=== PATIENT | female | born 1990 | race American Indian/Alaskan Native ===

== ENCOUNTER 2016-11-10 16:42 | Emergency (ER) | payer MEDICAID ==
[2016-11-10 17:39] LABS: Basophils % (Auto) 0.6 % (0.0-1.8); Eosinophils % (Auto) 5.6 % (0.0-4.3); Hematocrit 38.5 % (30.3-42.9); Hemoglobin 12.8 gm/dl (10.1-14.3); Mean Corpuscular HGB Conc 33 % (30-34); Mean Corpuscular Hemoglobin 31 pg (28-32); Mean Corpuscular Volume 94 fl (79-97); Platelet Count 248 K/mm3 (140-440); Red Cell Distribution Width 13.2 % (13.2-15.2); White Blood Count 5.7 K/mm3 (4.5-11.0)
[2016-11-10 17:46] LABS: Anion Gap 17 mmol/L; Blood Urea Nitrogen 9 mg/dL (7-17); Calcium 9.1 mg/dL (8.4-10.2); Carbon Dioxide 22 mmol/L (22-30); Chloride 101.4 mmol/L (98-107); Glucose 88 mg/dL (65-100); Lipase 26 units/L (13-60); Potassium 3.8 mmol/L (3.6-5.0); Sodium 137 mmol/L (137-145)
--- NOTE | 2016-11-10 20:05 | Ultrasound Report ---
FINAL REPORT EXAM: US OB \T\lt; = 14 WEEKS FETUS HISTORY: 8 weeks , Vaginal Bleeding TECHNIQUE: Ultrasound 1st trimester obstetrical transabdominal PRIORS: None. FINDINGS: Gestational sac is identified within the uterus mean sac diameter 1.25 centimeters corresponding to estimated gestational age by sac size of 6 weeks 1 day. No pole or yolk sac identified. The right ovary is 2.8 x 1.3 x 1.0 centimeters The left ovary is 3.1 x 1.4 x 1.3 centimeters. No abnormal mass or cyst identified. No free fluid is identified in the cul-de-sac IMPRESSION: Intrauterine gestational sac. Six weeks by sac size. pole and yolk sac not yet identified. Continued followup recommended
--- NOTE | 2016-11-10 20:20 | Ultrasound Report ---
FINAL REPORT EXAM: US OB TRANSVAGINAL HISTORY: vag bleed TECHNIQUE: Ultrasound obstetrical transvaginal PRIORS: Correlated with today's transabdominal ultrasound FINDINGS: Again identified is a gestational sac within the uterus 1.3 centimeters corresponding to estimated gestational age of 6 weeks 1 day. Few small internal echoes are noted. No definitive pole or yolk sac is identified. No free fluid seen The ovaries are normal in size and echogenicity. Right ovary is 2.8 x 1.3 x 1.0 centimeters. Left ovary is 3.1 x 1.4 x 1.3 centimeters. IMPRESSION: Intrauterine gestational sac. No pole or yolk sac yet identified. Likely reflecting very early gestation. Continued followup is recommended.
--- NOTE | 2016-11-10 21:05 | Emergency Department Report ---
HPI - General Chief Complaint: Abdominal Pain Time Seen by Provider: 11/10/16 20:43 - HPI HPI: This is a 26-year-old Afro[place] female who presents to the emergency department with some mild vaginal bleeding and pelvic cramping that began this morning and the patient is . Her last nasal cycle was at the end of August and since that time the patient is taken to recent home tests that were positive. She has an OB appointment on the with a Dr. Silverman but otherwise has not yet seen an FISCAL ECONOMIST and is not on vitamins. With this the patient would be with one previous miscarriage and one . She is not taken anything for symptoms prior to presentation. She otherwise denies any past medical history. No recent travel or sick contacts at home. ED Past Medical Hx - Past Medical History Previous Medical History?: No - Surgical History Past Surgical History?: No - Social History Smoking Status: Never Smoker Substance Use Type: None - Medications Home Medications: Home Medications Medication Instructions Recorded Confirmed Last Taken Type Nitrofurantoin [place]/M-Cryst 100 mg PO ONCE #14 capsule 11/10/16 Unknown Rx [Macrobid CAP] Vit No.130/Iron/FA 1 each PO QDAY #30 tablet 11/10/16 Unknown Rx [ Tablet] ED Review of Systems ROS: Stated complaint: 8 WKS PREGN/ABD PAIN VAG BLEEDING Other details as noted in HPI Comment: All other systems reviewed and negative Constitutional: denies: chills, fever Eyes: denies: eye pain, eye discharge, vision change ENT: denies: ear pain, throat pain Respiratory: denies: cough, shortness of breath, wheezing Cardiovascular: denies: chest pain, palpitations Gastrointestinal: other (pelvic cramping). denies: nausea, vomiting Genitourinary: other (vaginal bleeding). denies: dysuria, discharge Musculoskeletal: denies: back pain, joint swelling, arthralgia Skin: denies: rash, lesions Neurological: denies: headache, weakness, paresthesias Physical Exam - Physical Exam Vital Signs: Vital Signs 11/10/16 16:56 Temperature 98.1 F Pulse Rate 82 Respiratory 16 Rate Blood Pressure 153/95 O2 Sat by Pulse 100 Oximetry Physical Exam: GENERAL: The patient is well-developed well-nourished. HEENT: Normocephalic. Atraumatic. Extraocular motions are intact. Patient has moist mucous membranes. Pupils equal reactive to light bilaterally. NECK: Supple. Trachea is midline. CHEST/LUNGS: Clear to auscultation. There is no respiratory distress noted. HEART/CARDIOVASCULAR: Regular. There is no tachycardia. There is no gallop rub or murmur. ABDOMEN: Abdomen is soft, nontender. No guarding or rebound tenderness. Patient has normal bowel sounds. There is no abdominal distention. SKIN: Skin is warm and dry. NEURO: The patient is awake, alert, and oriented. The patient is cooperative. The patient has no focal neurologic deficits. The patient has normal speech. MUSCULOSKELETAL: There is no tenderness or deformity. There is no limitation range of motion. There is no evidence of acute injury. ED Course Vital Signs 11/10/16 16:56 Temperature 98.1 F Pulse Rate 82 Respiratory 16 Rate Blood Pressure 153/95 O2 Sat by Pulse 100 Oximetry ED Medical Decision Making - Lab Data Result diagrams: 11/10/16 17:10 11/10/16 17:10 - Radiology Data Radiology results: report reviewed Transvaginal/ ultrasound shows a intrauterine gestational sac that would be six-week by sac size. No pole or yolk sac is identified. - Medical Decision Making 26 year female presents with some mild vaginal bleeding and lower abdominal/ pelvic cramping. Patient is and found out from home test and confirmed today with a beta hCG of 9800. Ultrasound shows a gestational sac that would be 6 weeks in size but there is no current pole or yolk sac. This is a threatened miscarriage that could still be viable versus impending miscarriage. The patient will need a follow-up in 3-4 days for a repeat hormone level and possibly a repeat ultrasound. If the normal level is increasing and the ultrasound shows some development of a yolk sac and this is a viable and just early. If the level is decreasing, and the patient is most likely having a miscarriage. Until that time the patient will be treated with vitamins and precautions. She has a very mild UTI and will be treated with Macrobid. - Differential Diagnosis , threatened miscarriage, spontaneous miscarriage, fibroids, UTI Critical Care Time: No Critical care attestation.: If time is entered above; I have spent that time in minutes in the direct care of this critically ill patient, excluding procedure time. ED Disposition Clinical Impression: Threatened miscarriage UTI (urinary tract infection) Qualifiers: Urinary tract infection type: acute cystitis Hematuria presence: without hematuria Qualified Code(s): N30.00 - Acute cystitis without hematuria Qualifiers: Weeks of gestation: less than 8 weeks Qualified Code(s): Z3A.01 - Less than 8 weeks gestation of Disposition: DISCHARGED TO HOME OR SELFCARE Is pt being admited?: No Condition: Stable Instructions: Threatened Miscarriage (ED), (ED), Urinary Tract Infection in Women (ED) Additional Instructions: Please follow-up with an FISCAL ECONOMIST or back in the emergency department in 3-4 days for a repeat hormone level and possibly ultrasound. If the hormone level is increasing from the 9800 it is today, and if the follow-up ultrasound shows development, then this may still be viable. If the hormone level is decreasing then most likely you are having a miscarriage. You can take Tylenol every 4 hours, using weight-based dosing, as needed for discomfort. I have started you on vitamins. Otherwise do not take any medications that are not prescribed by a physician. Return to the emergency department with any worsening of your symptoms or any acute distress. Prescriptions: Nitrofurantoin [place]/M-Cryst [Macrobid CAP] 100 mg PO ONCE #14 capsule Vit No.130/Iron/FA [ Tablet] 1 each PO QDAY #30 tablet Referrals: PRIMARY CAREMD [Primary Care Provider] - [facility] [Provider Group] - 3-5 Days [facility] [Provider Group] - 3-5 Days Time of Disposition: 22:42
[2016-11-10 22:27] LABS: Bilirubin,Urine NEG (Negative); Blood,Urine MOD (Negative); Ketones,Urine NEG (Negative); Leukocyte Esterase,Urine SM (Negative); Mucus,Urine FEW /HPF; Nitrite,Urine NEG (Negative); Protein,Urine <15 mg/dL mg/dL (Negative); Urobilinogen,Urine < 2.0 mg/dL (<2.0)
[2016-11-10] MEDS ORDERED: MACROBID PO ONE (22:39)
[2016-11-10 23:14] VITALS: BP 139/72
== END 2016-11-10 23:13 | disposition home or self-care (01) ==
LOC: ED 16:42
DX: O20.0 Threatened abortion (principal); O23.31 Infections of other parts of urinary tract in pregnancy, first trimester; Z3A.01 Less than 8 weeks gestation of pregnancy
CPT/HCPCS: 36415; 76801; 76817; 80048; 81001; 83690; 84144; 84702; 84703; 85025; 86850; 86900; 86901

== ENCOUNTER 2016-11-13 15:22 | Emergency (ER) | payer MEDICAID ==
--- NOTE | 2016-11-13 16:24 | Emergency Department Report ---
Entered by DARRYL MULLINS, acting as scribe for JOEL ORNELAS NP. Chief Complaint: Vaginal Bleeding Stated Complaint: POSS MISCARRIAGE Time Seen by Provider: 11/13/16 16:16 - HPI History of Present Illness: 26 y/o non-toxic, non ill-appearing female in no acute distress presents to ED c/o severe lower abdominal and pelvic pain described as "sharp, like menstrual cramps x 10" with heavy vaginal bleeding since 4 days ago. She states her bleeding and pain have progressively worsened and states she her bleeding is soaking through her clothes. Pt reports she was seen here 4 days ago and was dx'ed with UTI and possible threatened miscarriage, but denies dx of miscarriage. Pt states she is 6 weeks . - ROS Review of Systems: + lower abdominal pain, pelvic pain + vaginal bleeding, heavy - Exam Vital Signs: Vital Signs 11/13/16 16:09 Temperature 98.1 F Pulse Rate 116 H Respiratory 20 Rate Blood Pressure 130/92 O2 Sat by Pulse 100 Oximetry Physical Exam: Abdomen: Lower abdominal, pelvic pain. No point tenderness. Non-distended. MSE screening note: Focused history and physical exam performed. Due to findings the following was ordered: UA, CMP, hcg quantitative serum, CBC ED Disposition for MSE Condition: Stable This documentation as recorded by the scribe,DARRYL MULLINS,accurately reflects the service I personally performed and the decisions made by CECI crews MARTIN, DAVID.
[2016-11-13 17:05] LABS: Basophils % (Auto) 0.6 % (0.0-1.8); Eosinophils % (Auto) 2.9 % (0.0-4.3); Hematocrit 37.9 % (30.3-42.9); Hemoglobin 12.9 gm/dl (10.1-14.3); Mean Corpuscular HGB Conc 34 % (30-34); Mean Corpuscular Hemoglobin 32 pg (28-32); Mean Corpuscular Volume 94 fl (79-97); Platelet Count 270 K/mm3 (140-440); Red Blood Count 4.05 M/mm3 (3.65-5.03); Red Cell Distribution Width 13.2 % (13.2-15.2); White Blood Count 9.4 K/mm3 (4.5-11.0)
[2016-11-13 17:41] LABS: Alanine Aminotransferase 9 units/L (7-56); Albumin 4.4 g/dL (3.9-5); Albumin/Globulin Ratio 1.4 %; Alkaline Phosphatase 42 units/L (35-129); Anion Gap 21 mmol/L; BUN/Creatinine Ratio 15.71; Blood Urea Nitrogen 11 mg/dL (7-17); Calcium 9.3 mg/dL (8.4-10.2); Carbon Dioxide 18 mmol/L (22-30); Chloride 101.6 mmol/L (98-107); Glucose 97 mg/dL (65-100); Potassium 4.1 mmol/L (3.6-5.0); Sodium 136 mmol/L (137-145); Total Protein 7.5 g/dL (6.3-8.2)
[2016-11-13 21:37] LABS: Bilirubin,Urine NEG (Negative); Blood,Urine MOD (Negative); Ketones,Urine NEG (Negative); Leukocyte Esterase,Urine NEG (Negative); Nitrite,Urine NEG (Negative); Urobilinogen,Urine < 2.0 mg/dL (<2.0)
[2016-11-13 21:43] LABS: RBC,Urine > 182.0 /HPF (0.0-6.0); WBC,Urine < 1.0 /HPF (0.0-6.0)
--- NOTE | 2016-11-13 21:53 | Emergency Department Report ---
ED General Adult HPI - General Chief complaint: Vaginal Bleeding Stated complaint: POSS MISCARRIAGE Time Seen by Provider: 11/13/16 21:43 Source: patient Mode of arrival: Ambulatory Limitations: No Limitations - History of Present Illness Initial comments: This is a pleasant female who is AB2 at 6weeks who reports increased bleeding today. She was actually here 3 days ago for small amount of vaginal bleeding. She did have ultrasound performed demonstrating a gestational sac measuring out in 6 weeks. Hormone levels were noted to be in the 90,000 range at that time as well. She was given a diagnosis of threatened miscarriage and OB follow-up. She returns today stating that she over the course that he has had significant increase in amount of bleeding that she's had. She's also had some clots that have been passing as well as some tissue products. She is concerned that she may have miscarried. She has a follow-up appointment with OB on Sunday. She does report some pelvic pain that is consistent with bad cramps. She states that she's been taking able to tolerate by mouth. She denies lightheadedness or dizziness associated with this. She states that actually over the last 2 hours her bleeding is significantly slowed down. Severity scale (0 -10): 8 Improves with: none Worsens with: none - Related Data Previous Rx's Medication Instructions Recorded Last Taken Type Nitrofurantoin [place]/M-Cryst 100 mg PO ONCE #14 capsule 11/10/16 Unknown Rx [Macrobid CAP] Vit No.130/Iron/FA 1 each PO QDAY #30 tablet 11/10/16 Unknown Rx [ Tablet] Allergies Allergy/AdvReac Type Severity Reaction Status Date / Time No Known Allergies Allergy Unverified 11/10/16 16:56 ED Review of Systems ROS: Stated complaint: POSS MISCARRIAGE Other details as noted in HPI Comment: All other systems reviewed and negative Constitutional: denies: chills, fever Eyes: denies: eye pain, eye discharge, vision change ENT: denies: ear pain, throat pain Respiratory: denies: cough, shortness of breath, wheezing Cardiovascular: denies: chest pain, palpitations Endocrine: no symptoms reported Gastrointestinal: abdominal pain. denies: nausea, diarrhea Genitourinary: abnormal menses. denies: urgency, dysuria, discharge Musculoskeletal: denies: back pain, joint swelling, arthralgia Skin: denies: rash, lesions Neurological: denies: headache, weakness, paresthesias Psychiatric: denies: anxiety, depression Hematological/Lymphatic: denies: easy bleeding, easy bruising ED Past Medical Hx - Past Medical History Previous Medical History?: Yes Additional medical history: Threatening miscarriage - Surgical History Past Surgical History?: No - Social History Smoking Status: Never Smoker Substance Use Type: Alcohol - Medications Home Medications: Home Medications Medication Instructions Recorded Confirmed Last Taken Type Nitrofurantoin [place]/M-Cryst 100 mg PO ONCE #14 capsule 11/10/16 11/13/16 Unknown Rx [Macrobid CAP] Vit No.130/Iron/FA 1 each PO QDAY #30 tablet 11/10/16 11/13/16 Unknown Rx [ Tablet] ED Physical Exam - General Limitations: No Limitations General appearance: alert, in no apparent distress - Head Head exam: Present: atraumatic, normocephalic - Eye Eye exam: Present: normal appearance, EOMI. Absent: scleral icterus - ENT ENT exam: Present: normal exam, normal orophraynx, mucous membranes moist - Neck Neck exam: Present: normal inspection, full ROM. Absent: meningismus, lymphadenopathy - Respiratory Respiratory exam: Present: normal lung sounds bilaterally. Absent: respiratory distress, wheezes, rales - Cardiovascular Cardiovascular Exam: Present: regular rate, normal rhythm. Absent: systolic murmur, diastolic murmur, rubs, gallop - GI/Abdominal GI/Abdominal exam: Present: soft, tenderness, normal bowel sounds. Absent: guarding, rebound, organomegaly (mild suprapubic region.) - Extremities Exam Extremities exam: Present: normal inspection, full ROM. Absent: tenderness - Back Exam Back exam: Present: normal inspection, full ROM. Absent: CVA tenderness (R), CVA tenderness (L) - Neurological Exam Neurological exam: Present: alert, oriented X3 - Psychiatric Psychiatric exam: Present: normal affect, normal mood - Skin Skin exam: Present: warm, dry, intact, normal color. Absent: rash ED Course Vital Signs 11/13/16 11/13/16 16:09 20:59 Temperature 98.1 F 97.9 F Pulse Rate 116 H 92 H Respiratory 20 18 Rate Blood Pressure 130/92 143/93 O2 Sat by Pulse 100 99 Oximetry - Reevaluation(s) Reevaluation #1: 11/13/16 22:07 Patient is stable and well appearing here. She was slightly tachycardic in triage. Upon recheck her blood pressure was still appropriate with a heart rate of 94. She is comfortable speaking with her significant other. Unfortunately I didn't have to share with her bad news regarding her hormone levels significant only dropping compared to a value from 3 days ago. By her history is suspect she is completed miscarriage. She does have follow-up appointment on Sunday. I did encourage her to keep this appointment for repeat hormone checked to assure that her hCG continues to drop towards 0. She did have ultrasound again performed just 3 days ago demonstrating an IUP. I do not have suspicion for ectopic . Her examination is not consistent with this type of presentation either. Again hemodynamically she is otherwise appropriate and stable. Her Rh status is O+. This is again her second miscarriage she did have earlier elective performed on her first . I did indicate encouraged her to discuss with her OB other tests that could be performed as well to determine whether there are any complications with her caring a more successfully. Questions been answered otherwise stable and safe for home. ED Medical Decision Making - Lab Data Result diagrams: 11/13/16 16:32 11/13/16 16:32 Critical care attestation.: If time is entered above; I have spent that time in minutes in the direct care of this critically ill patient, excluding procedure time. ED Disposition Clinical Impression: Complete miscarriage Disposition: DISCHARGED TO HOME OR SELFCARE Is pt being admited?: No Does the pt Need Aspirin: No Condition: Stable Instructions: Spontaneous Miscarriage (ED) Additional Instructions: Your HCG levels on 11/10 were 9823. HCG levels on 11/13 are 6804. Your blood type is O positive. Your hemoglobin level today is 12.9 which is the same from 3 days ago. Follow up with your OB on Sunday as planned.Take Ibuprofen as needed for cramps. Referrals: TRISTEN HANNA MD [Primary Care Provider] - 3-5 Days Time of Disposition: 21:54
[2016-11-13 22:34] VITALS: BP 132/89
== END 2016-11-13 22:34 | disposition home or self-care (01) ==
LOC: ED 15:22
DX: O03.9 Complete or unspecified spontaneous abortion without complication (principal); Z3A.01 Less than 8 weeks gestation of pregnancy
CPT/HCPCS: 36415; 80053; 81001; 84702; 85025; 86850; 86900; 86901

== ENCOUNTER 2017-09-29 23:25 | Outpatient (CLI) | payer MEDICAID ==
[2017-09-30 00:09] VITALS: BP 133/84
== END 2017-09-30 01:35 | disposition home or self-care (01) ==
LOC: EDSTATUS 23:37 → TRG 23:41
PROVIDERS: ATTEND Obstetrics & Gynecology
DX: O46.93 Antepartum hemorrhage, unspecified, third trimester (principal); Z3A.37 37 weeks gestation of pregnancy

== ENCOUNTER 2017-10-13 20:25 | Inpatient (IN) | payer MEDICAID ==
[2017-10-13] MEDS ORDERED: LACTATED RINGERS 1,000 ML ONE (23:51)
[2017-10-13] MEDS ORDERED: STADOL IV PRN (23:57)
[2017-10-14] MEDS ORDERED: LACTATED RINGERS 1,000 ML ONE (00:08)
[2017-10-14] MEDS ORDERED: MINERAL OIL PO PRN (00:27)
[2017-10-14] MEDS ORDERED: ePHEDrine SULFATE IV PRN (00:27)
--- NOTE | 2017-10-14 00:34 | History and Physical Report ---
History of Present Illness Date of examination: 10/14/17 Date of admission: 10/13/17 23:14 Chief complaint: 40 weeks with contractions. History of present illness: Patient is a 27 year old , LMP 01/13/17, EDC 10/20/17 at 39 weeks and 1 day gestation who presented to triage complaining of having contractions since 4 PM yesterday. She denies any fluid leakage or bleeding. She reports good movement. Past History Past Medical History: other (anemia, vit D def, HSV-2) Past Surgical History: no surgical history, D&C (x 3) NURSE INSTRUCTOR History: herpes Family/Genetic History: none Social history: no significant social history - Obstetrical History Expected Date of Delivery: 10/20/17 Actual Gestation: 39 Week(s) 1 Day(s) : 4 Spontaneous Abortions: 2 Induced : 1 Medications and Allergies Allergies Allergy/AdvReac Type Severity Reaction Status Date / Time No Known Allergies Allergy Unverified 11/10/16 16:56 Home Medications Medication Instructions Recorded Confirmed Last Taken Type Nitrofurantoin [place]/M-Cryst 100 mg PO ONCE #14 capsule 11/10/16 11/13/16 Unknown Rx [Macrobid CAP] Vit No.130/Iron/Folic 1 each PO QDAY #30 tablet 11/10/16 11/13/16 Unknown Rx [ Tablet] Active Meds: Active Medications Butorphanol Tartrate (Stadol) 0.5 mg IV ONCE PRN PRN Reason: Labor Pain Last Admin: 10/14/17 00:10 Dose: 0.5 mg - Vital Signs Vital signs: Vital Signs Pulse Pulse Ox 79 100 10/13/17 20:49 10/13/17 20:49 Temp Pulse Resp BP Pulse Ox 97.8 F 72 18 131/80 99 10/13/17 23:23 10/13/17 23:23 10/13/17 23:23 10/13/17 23:23 10/13/17 23:12 - Physical Exam Cardiovascular: Normal S1, Normal S2 Lungs: Positive: Clear to auscultation Vulva: both: normal Uterus: Positive: enlarged Adnexa: both: normal Deep Tendon Reflex Grade: Normal +2 - Obstetrical FHR: category 1 Uterine Contraction Monitor Mode: External Cervical Dilatation: 4 Cervical Effacement Percentage: 70 station: -2 Uterine Contraction Pattern: Regular Uterine Tone Measurement Phase: Contraction Uterine Contraction Intensity: Strong/Firm Results All other labs normal. Assessment and Plan - Patient Problems (1) 39 weeks gestation of Current Visit: Yes Status: Acute (2) Active labor Current Visit: Yes Status: Acute Plan to address problem: Admit to labor floor. Routine admitting labs, IV fluid. and toco monitoring. Anticipate . (3) Anemia Current Visit: Yes Status: Acute Qualifiers: Anemia type: iron deficiency (4) Vitamin D deficiency Current Visit: Yes Status: Acute
[2017-10-14 00:54] LABS: Hematocrit 37.2 % (30.3-42.9); Hemoglobin 12.4 gm/dl (10.1-14.3); Mean Corpuscular HGB Conc 33 % (30-34); Mean Corpuscular Hemoglobin 33 pg (28-32); Mean Corpuscular Volume 99 fl (79-97); Platelet Count 242 K/mm3 (140-440); Red Blood Count 3.76 M/mm3 (3.65-5.03); Red Cell Distribution Width 14.1 % (13.2-15.2)
[2017-10-14] MEDS ORDERED: LACTATED RINGERS 1,000 ML IV SCH (01:00)
[2017-10-14] MEDS ORDERED: PITOCin/NS 20 UNIT/1000ML DRIP 20,000 MILLIUNITS/1,000 ML BAG IV ONE (01:14)
[2017-10-14] MEDS ORDERED: XYLOCAINE 2% INFILTRATI ONE (01:21)
[2017-10-14] MEDS ORDERED: ZOFRAN IV PRN (01:58)
[2017-10-14] MEDS ORDERED: LANSINOH TP PRN (01:58)
[2017-10-14] MEDS ORDERED: MILK OF MAGNESIA PO PRN (01:58)
[2017-10-14] MEDS ORDERED: DERMOPLAST TP PRN (01:58)
[2017-10-14] MEDS ORDERED: BENADRYL PO PRN (01:58)
[2017-10-14] MEDS ORDERED: TYLENOL PO PRN (01:58)
[2017-10-14] MEDS ORDERED: PERCOCET 5/325 PO PRN (01:58)
[2017-10-14] MEDS ORDERED: DULCOLAX PR PRN (01:58)
[2017-10-14] MEDS ORDERED: TUCKS PAD TP PRN (01:58)
[2017-10-14] MEDS ORDERED: PHENERGAN PO PRN (01:58)
[2017-10-14] MEDS ORDERED: PITOCin/NS 20 UNIT/1000ML DRIP 20 UNITS/1,000 ML BAG IV SCH (02:00)
[2017-10-14] MEDS ORDERED: SODIUM CHLORIDE FLUSH SYRINGE 10 ML IV NR (02:00)
--- NOTE | 2017-10-14 02:13 | Procedure Note ---
OB Delivery Note - Delivery Date of Delivery: 10/14/17 Surgeon: JAGDEEP SIEGEL Estimated blood loss: other (150 cc) - Vaginal Delivery presentation: vertex Delivery position: OA Intrapartum events: precipitous labor- <3hr Delivery induction: none Delivery monitor: external FHT Route of delivery: Delivery placenta: spontaneous Episiotomy: none Delivery laceration: 2nd degree Delivery repair: vicryl Anesthesia: local Delivery comments: Patient became fully dilated. She delivered a live female infant from an KAVITA position with Apgars of 8 at 1 min and 9 at 5 mins at 1:22 AM. Weight was 6 lbs 4 oz. Bulb suction of mouth and nose, cord clamped and cut, cord blood collected. The placenta was delivered spontaneously and it was complete with a 3 -vessel cord. No episiotomy was given. A second degree perineal laceration was sustained. It was repaired with 2.0 and 3.0 vicryl sutures with good hemostasis. EBL was about 150 cc. Peds were notified. Patient remained stable.
[2017-10-14] MEDS: MOTRIN PO SCH ×6 (04:39→23:45)
[2017-10-14] MEDS: METHERGINE PO SCH ×2 (04:48→06:00)
--- NOTE | 2017-10-14 11:51 | Progress Note ---
Assessment and Plan A: DOD, stable P: D/C [place] Subjective - Subjective Date of service: 10/14/17 Principal diagnosis: DOD Patient reports: appetite normal [place]: doing well Objective - Vital Signs Latest vital signs: Vital Signs Temp Pulse Resp BP BP Pulse Ox 10/14/17 09:13 98.8 F 76 18 124/77 10/14/17 08:36 68 98 10/14/17 04:39 20 10/14/17 03:48 74 135/86 98 10/14/17 03:45 98.4 F 74 18 135/86 99 10/14/17 03:16 74 141/73 10/14/17 03:01 77 134/78 10/14/17 03:00 98.2 F 77 18 134/78 10/14/17 02:46 81 138/82 10/14/17 02:45 82 138/70 10/14/17 02:31 83 130/64 10/14/17 02:30 83 130/64 10/14/17 02:16 88 123/72 10/14/17 02:15 88 123/72 10/14/17 02:01 88 125/71 10/14/17 02:00 97.8 F 88 18 125/73 10/14/17 01:46 88 121/68 10/13/17 23:23 97.8 F 72 18 131/80 10/13/17 23:12 76 99 10/13/17 23:07 76 100 10/13/17 23:02 87 100 10/13/17 22:57 83 100 10/13/17 22:54 72 94 10/13/17 22:52 75 100 10/13/17 22:47 87 99 10/13/17 22:42 68 100 10/13/17 22:37 89 100 10/13/17 22:32 72 100 10/13/17 22:27 76 100 10/13/17 21:54 90 100 10/13/17 21:51 76 62 L 10/13/17 21:49 89 100 10/13/17 21:44 82 100 10/13/17 21:39 70 100 10/13/17 21:34 90 100 10/13/17 21:29 73 100 10/13/17 21:24 76 100 10/13/17 21:19 82 100 10/13/17 21:14 77 100 10/13/17 21:09 82 100 10/13/17 21:06 71 129/86 10/13/17 21:04 87 100 10/13/17 21:00 98.3 F 76 18 129/86 100 10/13/17 20:59 98 H 100 10/13/17 20:54 82 100 10/13/17 20:49 79 100 Intake and Output 10/13/17 10/14/17 10/14/17 22:59 06:59 14:59 Intake Total 120 Output Total 300 Balance -180 Intake: Oral 120 Output: Urine 300 Void 300 Other: Total, Intake Amount 120 Total, Output Amount 300 Weight 165 lb 165 lb 0.009 oz - Exam Breasts: Present: deferred, Cardiovascular: Present: Regular rate Lungs: Present: Clear to auscultation Abdomen: Present: soft Vulva: both: normal Uterus: Present: fundal height below umbilicus Deep Tendon Reflex Grade: Normal +2 - Labs Labs: Abnormal lab results 10/14/17 Range/Units Unknown MCV 99 H (79-97) fl MCH 33 H (28-32) pg
[2017-10-14] MEDS: PRENATAL VITAMIN PO SCH (13:04)
[2017-10-14] MEDS: FEOSOL PO SCH ×2 (13:04→22:15)
[2017-10-14] MEDS: COLACE PO SCH ×2 (13:05→22:15)
[2017-10-14 14:36] LABS: Hematocrit 34.9 % (30.3-42.9); Hemoglobin 11.5 gm/dl (10.1-14.3)
[2017-10-15] MEDS: MOTRIN PO SCH ×4 (06:06→23:26)
--- NOTE | 2017-10-15 08:47 | Progress Note ---
Assessment and Plan - Patient Problems (1) (normal spontaneous vaginal delivery) Current Visit: Yes Status: Acute Plan to address problem: PPD 2 - stable Continue routine PP orders Encouraged ice pack to perineum/sitz baths Discharge home in AM 10/16/17 F/U at [facility] in 6 weeks for PP exam Subjective - Subjective Date of service: 10/15/17 Principal diagnosis: s/p Normal Spontaneous Vaginal Delivery Patient reports: appetite normal, voiding normally, pain well controlled, ambulating normally : doing well, nursing well Objective - Vital Signs Latest vital signs: Vital Signs Temp Pulse Resp BP 10/15/17 00:00 98.8 F 74 18 111/58 10/14/17 18:27 20 10/14/17 17:10 98.2 F 66 18 122/76 10/14/17 13:00 20 10/14/17 12:59 20 10/14/17 09:13 98.8 F 76 18 124/77 Intake and Output 10/14/17 10/15/17 10/15/17 23:59 07:59 15:59 Intake Total 360 Output Total 600 Balance -240 Intake: Oral 240 Intake, Free Water 120 Output: Urine 600 Void 600 Other: Total, Intake Amount 240 Total, Output Amount 600 - Exam Cardiovascular: Present: Regular rate, Normal S1, Normal S2, No murmurs Lungs: Present: Clear to auscultation, Normal air movement Abdomen: Present: normal appearance, soft Vulva: both: laceration/episiotomy (laceration well approximated. Bilateral labial edema present) Uterus: Present: normal, firm, fundal height below umbilicus Extremities: Present: normal Deep Tendon Reflex Grade: Normal +2
--- NOTE | 2017-10-15 08:51 | Discharge Summary ---
Providers - Providers Date of Admission: 10/13/17 23:14 Date of discharge: 10/16/17 Attending physician: JAGDEEP SIEGEL MD Primary care physician: JAGDEEP SIEGEL MD Hospitalization Reason for admission: active labor, IUP at term Delivery: Episiotomy: none Laceration: 2nd degree Other procedures: none complications: none Discharge diagnosis: IUP at term delivered [place] baby: female Hospital course: Uncomplicated Condition at discharge: Stable Disposition: SD-01 TO HOME OR SELFCARE - Discharge Diagnoses (1) (normal spontaneous vaginal delivery) Status: Acute Plan - Provider Discharge Summary Activity: routine, no sex for 6 weeks, no heavy lifting 4 weeks, no strenuous exercise Diet: routine Instructions: routine Additional instructions: [] Smoking cessation referral if applicable(refer to patient education folder for contact #) [] Refer to [facility] Book[facility] Call your doctor immediately for: * Fever > 100.5 * Heavy vaginal bleeding ( >1 pad per hour) * Severe persistent headache * Shortness of breath * Reddened, hot, painful area to leg or breast * Drainage or odor from incision. * Keep incision clean and dry at all times and follow doctor's instructions regarding bathing/showering - Follow up plan Follow up: JAGDEEP SIEGEL MD [Primary Care Provider] - 6 Weeks (Call [facility] to schedule exam in 6 weeks)
[2017-10-15] MEDS: PRENATAL VITAMIN PO SCH (10:40)
[2017-10-15] MEDS: FEOSOL PO SCH ×2 (10:41→21:45)
[2017-10-15] MEDS: COLACE PO SCH ×2 (10:41→21:45)
[2017-10-16] MEDS: MOTRIN PO SCH (05:26)
[2017-10-16] MEDS: PRENATAL VITAMIN PO SCH (10:38)
[2017-10-16] MEDS: COLACE PO SCH (10:39)
[2017-10-16] MEDS: FEOSOL PO SCH (10:39)
[2017-10-16 13:10] VITALS: BP 118/76
== END 2017-10-16 12:55 | disposition home or self-care (01) | DRG 775 ==
LOC: TRG 20:25 → LD 23:14 → OB 10-14 03:39
PROVIDERS: ADMIT Obstetrics & Gynecology; ATTEND Obstetrics & Gynecology
PROC: 10E0XZZ Delivery of Products of Conception, External Approach (ICD-10-PCS; principal; 2017-10-14)
PROC: 0KQM0ZZ Repair Perineum Muscle, Open Approach (ICD-10-PCS; 2017-10-14)
DX: O62.3 Precipitate labor (principal); O99.02 Anemia complicating childbirth; O70.1 Second degree perineal laceration during delivery; D64.9 Anemia, unspecified; E55.9 Vitamin D deficiency, unspecified; O75.89 Other specified complications of labor and delivery; Z3A.39 39 weeks gestation of pregnancy; Z37.0 Single live birth
CPT/HCPCS: 36415; 85014; 85018; 85027; 86592; 86850; 86900; 86901; 99211; A6250; G0463; J0595; J2590; J7120